=== PATIENT | male | born 1990 | race Caucasian/White ===

== ENCOUNTER 2017-05-27 15:17 | Emergency (ER) | payer SELFPAY ==
[2017-05-27] MEDS ORDERED: NACL 0.9% 1000 ML 1,000 ML IV ONE (15:32)
[2017-05-27] MEDS ORDERED: DILAUDID IV ONE (15:40)
[2017-05-27] MEDS ORDERED: ZOFRAN IV ONE (15:40)
[2017-05-27 16:17] LABS: Basophils % (Auto) 0.3 % (0.0-1.8); Eosinophils % (Auto) 0.5 % (0.0-4.3); Hematocrit 44.6 % (35.5-45.6); Hemoglobin 14.8 gm/dl (11.8-15.2); Mean Corpuscular HGB Conc 33 % (32-34); Mean Corpuscular Hemoglobin 30 pg (28-32); Mean Corpuscular Volume 91 fl (84-94); Platelet Count 234 K/mm3 (140-440); Red Blood Count 4.92 M/mm3 (3.65-5.03); Red Cell Distribution Width 12.6 % (13.2-15.2); White Blood Count 16.6 K/mm3 (4.5-11.0)
[2017-05-27 16:18] LABS: Anion Gap 19 mmol/L; BUN/Creatinine Ratio 15; Blood Urea Nitrogen 19 mg/dL (9-20); Calcium 9.4 mg/dL (8.4-10.2); Carbon Dioxide 28 mmol/L (22-30); Chloride 98.8 mmol/L (98-107); Glucose 93 mg/dL (75-100); Potassium 4.4 mmol/L (3.6-5.0); Sodium 141 mmol/L (137-145)
[2017-05-27 16:20] LABS: Alanine Aminotransferase 25 units/L (7-56); Albumin 4.8 g/dL (3.9-5); Albumin/Globulin Ratio 1.8 %; Alkaline Phosphatase 76 units/L (35-129); Lipase 43 units/L (13-60); Total Protein 7.5 g/dL (6.3-8.2)
[2017-05-27 16:23] LABS: Bilirubin,Direct < 0.2 mg/dL (0-0.2); Bilirubin,Indirect 0.1 mg/dL
[2017-05-27 16:28] LABS: INR 0.92 (0.87-1.13)
[2017-05-27 16:29] LABS: Partial Thromboplastin Time 24.8 Sec. (24.2-36.6)
--- NOTE | 2017-05-27 16:47 | XRay Report ---
AP CHEST: Trauma with chest and shoulder pain. AP view of the chest demonstrates a normal mediastinal and cardiac contour with clear lungs and normal bony and soft tissue structures. IMPRESSION: Normal AP chest.
--- NOTE | 2017-05-27 16:48 | XRay Report ---
AP PELVIS: Trauma, pelvic pain. AP view of the pelvis shows normal pelvic contour and soft tissues. The hips are symmetric and within normal limits as are the sacroiliac joints. IMPRESSION: Normal pelvis.
[2017-05-27 17:58] LABS: Urine Drugs of Abuse Note Disclamer
[2017-05-27 18:19] LABS: Bilirubin,Urine NEG (Negative); Blood,Urine MOD (Negative); Ketones,Urine NEG (Negative); Leukocyte Esterase,Urine NEG (Negative); Mucus,Urine FEW /HPF; Nitrite,Urine NEG (Negative); Urobilinogen,Urine < 2.0 mg/dL (<2.0)
[2017-05-27] MEDS ORDERED: BOOSTRIX IM ONE (18:26)
--- NOTE | 2017-05-27 18:55 | Emergency Department Report ---
ED General Adult HPI - General Chief complaint: Multiple Trauma Stated complaint: TREE FALL ON PT , LEFT SIDE PAIN Time Seen by Provider: 05/27/17 15:31 Source: patient Mode of arrival: Ambulatory Limitations: No Limitations - History of Present Illness Initial comments: The patient is employed by a [employer]. He states that he was injured when a branch fell from a height hitting his left posterior thorax region. He subsequently fell onto his right costal region. He complains of pain in both those locations. He is not complaining of pain in his abdominal region. He did not strike his head. He does not complain of any midline spine pain at any juncture. He denies neck pain mid back and lower back pain. He denies any extremity injury. He is not short of breath. Patient denies any previous medical problems or surgery. Doesn't speak Hungarian. The history was obtained in Nepali. -: Sudden Location: chest Radiation: non-radiation Severity scale (0 -10): 7 Quality: aching Consistency: intermittent Improves with: none Worsens with: movement Associated Symptoms: denies other symptoms Treatments Prior to Arrival: none - Related Data Previous Rx's Medication Instructions Recorded Last Taken Type HYDROcodone/APAP 5-325 [[place] 1 each PO Q6HR PRN #10 tablet 05/27/17 Unknown Rx 5/325] Allergies Allergy/AdvReac Type Severity Reaction Status Date / Time No Known Allergies Allergy Unverified 05/27/17 15:27 ED Review of Systems ROS: Stated complaint: TREE FALL ON PT , LEFT SIDE PAIN Other details as noted in HPI Constitutional: denies: chills, fever Eyes: denies: eye pain, eye discharge, vision change ENT: denies: ear pain, throat pain Respiratory: denies: cough, shortness of breath, wheezing Cardiovascular: chest pain. denies: palpitations Endocrine: no symptoms reported Gastrointestinal: denies: abdominal pain, nausea, diarrhea Genitourinary: denies: urgency, dysuria Musculoskeletal: denies: back pain, joint swelling, arthralgia Skin: denies: rash, lesions Neurological: denies: headache, weakness, paresthesias Psychiatric: denies: anxiety, depression Hematological/Lymphatic: denies: easy bleeding, easy bruising ED Past Medical Hx - Past Medical History Previous Medical History?: No - Surgical History Past Surgical History?: No - Social History Smoking Status: Current Every Day Smoker Substance Use Type: None - Medications Home Medications: Home Medications Medication Instructions Recorded Confirmed Last Taken Type HYDROcodone/APAP 5-325 [[place] 1 each PO Q6HR PRN #10 tablet 05/27/17 Unknown Rx 5/325] ED Physical Exam - General Limitations: No Limitations General appearance: alert, in no apparent distress - Head Head exam: Present: atraumatic, normocephalic - Eye Eye exam: Present: normal appearance. Absent: scleral icterus - ENT ENT exam: Present: mucous membranes moist - Neck Neck exam: Present: normal inspection - Respiratory Respiratory exam: Present: normal lung sounds bilaterally, chest wall tenderness. Absent: respiratory distress - Cardiovascular Cardiovascular Exam: Present: regular rate, normal rhythm. Absent: systolic murmur, diastolic murmur, rubs, gallop - GI/Abdominal GI/Abdominal exam: Present: soft, normal bowel sounds. Absent: distended, tenderness, guarding, rebound, rigid - Rectal Rectal exam: Present: deferred - Extremities Exam Extremities exam: Present: normal inspection - Back Exam Back exam: Present: normal inspection. Absent: CVA tenderness (R), CVA tenderness (L), muscle spasm, paraspinal tenderness, vertebral tenderness - Neurological Exam Neurological exam: Present: alert, oriented X3, CN II-XII intact. Absent: motor sensory deficit - Psychiatric Psychiatric exam: Present: normal affect, normal mood - Skin Skin exam: Present: warm, dry, abrasion (left posterior and right anterior costal region), ecchymosis. Absent: rash ED Course Vital Signs 05/27/17 05/27/17 05/27/17 15:24 18:27 19:04 Temperature 98.4 F 99.3 F Pulse Rate 105 H 89 Respiratory 18 18 15 Rate Blood Pressure 121/60 Blood Pressure 123/64 [Right] O2 Sat by Pulse 98 98 Oximetry 05/27/17 22:24 Temperature 98.8 F Pulse Rate 73 Respiratory 18 Rate Blood Pressure Blood Pressure 126/84 [Right] O2 Sat by Pulse 100 Oximetry - Reevaluation(s) Reevaluation #1: Patient was given IV fluids and analgesia. His plain x-rays were negative. I am awaiting his CT reports. He remains hemodynamically stable. 05/27/17 18:54 Reevaluation #2: On reexamination patient is resting comfortably. There is no signs of any respiratory problem or submental complaint. His pain is well controlled. 05/27/17 19:53 ED Medical Decision Making - Lab Data Result diagrams: 05/27/17 15:41 05/27/17 15:41 Laboratory Results - last 24 hr 05/27/17 05/27/17 05/27/17 15:41 15:41 15:41 WBC 16.6 H RBC 4.92 Hgb 14.8 Hct 44.6 MCV 91 MCH 30 MCHC 33 RDW 12.6 L Plt Count 234 Lymph % (Auto) 8.4 L Bledsoe % (Auto) 8.5 H Eos % (Auto) 0.5 Baso % (Auto) 0.3 Lymph # 1.4 Bledsoe # 1.4 H Eos # 0.1 Baso # 0.0 Seg Neutrophils % 82.3 H Seg Neutrophils # 13.7 H PT 12.8 INR 0.92 APTT 24.8 Sodium 141 Potassium 4.4 Chloride 98.8 Carbon Dioxide 28 Anion Gap 19 BUN 19 Creatinine 1.3 Estimated GFR > 60 BUN/Creatinine Ratio 15 Glucose 93 Calcium 9.4 Magnesium Total Bilirubin Direct Bilirubin Indirect Bilirubin AST ALT Alkaline Phosphatase Total Protein Albumin Albumin/Globulin Ratio Lipase Urine Color Urine Turbidity Urine pH Ur Specific Pace Urine Protein Urine Glucose (UA) Urine Ketones Urine Blood Urine Nitrite Urine Bilirubin Urine Urobilinogen Ur Leukocyte Esterase Urine WBC (Auto) Urine RBC (Auto) U Epithel Cells (Auto) Urine Mucus Urine Opiates Screen Urine Methadone Screen Ur Barbiturates Screen Ur Phencyclidine Scrn Ur Amphetamines Screen U Benzodiazepines Scrn Urine Cocaine Screen U Marijuana (THC) Screen Drugs of Abuse Note Plasma/Serum Alcohol Blood Type Antibody Screen 05/27/17 05/27/17 05/27/17 15:41 15:41 15:41 WBC RBC Hgb Hct MCV MCH MCHC RDW Plt Count Lymph % (Auto) Bledsoe % (Auto) Eos % (Auto) Baso % (Auto) Lymph # Bledsoe # Eos # Baso # Seg Neutrophils % Seg Neutrophils # PT INR APTT Sodium Potassium Chloride Carbon Dioxide Anion Gap BUN Creatinine Estimated GFR BUN/Creatinine Ratio Glucose Calcium Magnesium 1.90 Total Bilirubin 0.30 Direct Bilirubin < 0.2 Indirect Bilirubin 0.1 AST 30 ALT 25 Alkaline Phosphatase 76 Total Protein 7.5 Albumin 4.8 Albumin/Globulin Ratio 1.8 Lipase 43 Urine Color Urine Turbidity Urine pH Ur Specific Pace Urine Protein Urine Glucose (UA) Urine Ketones Urine Blood Urine Nitrite Urine Bilirubin Urine Urobilinogen Ur Leukocyte Esterase Urine WBC (Auto) Urine RBC (Auto) U Epithel Cells (Auto) Urine Mucus Urine Opiates Screen Urine Methadone Screen Ur Barbiturates Screen Ur Phencyclidine Scrn Ur Amphetamines Screen U Benzodiazepines Scrn Urine Cocaine Screen U Marijuana (THC) Screen Drugs of Abuse Note Plasma/Serum Alcohol < 0.01 Blood Type A POSITIVE Antibody Screen Negative 05/27/17 05/27/17 Unknown Unknown WBC RBC Hgb Hct MCV MCH MCHC RDW Plt Count Lymph % (Auto) Bledsoe % (Auto) Eos % (Auto) Baso % (Auto) Lymph # Bledsoe # Eos # Baso # Seg Neutrophils % Seg Neutrophils # PT INR APTT Sodium Potassium Chloride Carbon Dioxide Anion Gap BUN Creatinine Estimated GFR BUN/Creatinine Ratio Glucose Calcium Magnesium Total Bilirubin Direct Bilirubin Indirect Bilirubin AST ALT Alkaline Phosphatase Total Protein Albumin Albumin/Globulin Ratio Lipase Urine Color Yellow Urine Turbidity Clear Urine pH 5.0 Ur Specific Pace 1.043 H Urine Protein 30 mg/dl Urine Glucose (UA) Neg Urine Ketones Neg Urine Blood Mod Urine Nitrite Neg Urine Bilirubin Neg Urine Urobilinogen < 2.0 Ur Leukocyte Esterase Neg Urine WBC (Auto) 2.0 Urine RBC (Auto) 7.0 U Epithel Cells (Auto) < 1.0 Urine Mucus Few Urine Opiates Screen Presumptive negative Urine Methadone Screen Presumptive negative Ur Barbiturates Screen Presumptive negative Ur Phencyclidine Scrn Presumptive negative Ur Amphetamines Screen Presumptive negative U Benzodiazepines Scrn Presumptive negative Urine Cocaine Screen Presumptive negative U Marijuana (THC) Screen Presumptive negative Drugs of Abuse Note Disclamer Plasma/Serum Alcohol Blood Type Antibody Screen - Radiology Data interpreted by me: I do not see anything abnormal on the plain films. Awaiting radiologist's report of the CT examinations... CT examination was reviewed today. The patient was transferred to the [facility] per Dr. Escalante after my departure. Critical care attestation.: If time is entered above; I have spent that time in minutes in the direct care of this critically ill patient, excluding procedure time. ED Disposition Clinical Impression: Rib fractures Chest wall contusion Qualifiers: Encounter type: initial encounter Laterality: unspecified laterality Qualified Code(s): S20.219A - Contusion of unspecified front wall of thorax, initial encounter Pulmonary contusion Qualifiers: Encounter type: initial encounter Laterality: unspecified laterality Qualified Code(s): S27.329A - Contusion of lung, unspecified, initial encounter Lumbar transverse process fracture Qualifiers: Encounter type: initial encounter Fracture type: closed Qualified Code(s): S32.009A - Unspecified fracture of unspecified lumbar vertebra, initial encounter for closed fracture Disposition: DC/TX-70 ANOTHER TYPE HLTHCARE Is pt being admited?: No Does the pt Need Aspirin: No Condition: Stable Instructions: Contusion in Adults (ED) Additional Instructions: Return a difficulty in breathing increased pain or acute change. Prescriptions: HYDROcodone/APAP 5-325 [[place] 5/325] 1 each PO Q6HR PRN #10 tablet PRN Reason: Pain Referrals: PRIMARY CARE, [Primary Care Provider] - 3-5 Days [facility] [Provider Group] - 3-5 Days Time of Disposition: 19:58
--- NOTE | 2017-05-27 20:39 | Cat Scan Report ---
FINAL REPORT PROCEDURE: CT CHEST ABDOMEN PELVIS W CON TECHNIQUE: Computerized axial tomography of the abdomen and pelvis was performed after the IV injection of iodinated nonionic contrast. HISTORY: trauma COMPARISON: No prior studies are available for comparison. FINDINGS: Accession No. : [id number] Patient Name / ID : AJ LAZO / [id number] Exam Date : 05/27/2017 16:47:14 ( Final ) Study Comment : Sex / Age : M / 26Y Creator : ROBERT SAMANIEGO M.D. Dictator : ROBERT SAMANIEGO M.D. Professional Housing Consultant : Corn Detasseler Machine Operator : ROBERT SAMANIEGO M.D. Approver2 : Report Date : 05/27/2017 20:37:14 My Comment : PROCEDURE: CT CHEST, ABD AND PELVIS W CONTRAST TECHNIQUE: Computerized axial tomography of the chest, abdomen, and pelvis after the IV injection of iodinated nonionic contrast was performed. HISTORY: trauma COMPARISON: No prior studies are available for comparison. FINDINGS: Chest: Heart and pericardium: Normal. Thoracic aorta: Normal. Pulmonary vasculature: Normal. Mediastinum: No enlarged thoracic lymph nodes. Lungs: Slight mixed haziness in the left infrahilar lung zone posteriorly may reflect atelectasis or slight contusion. No pneumothorax is seen. Pleural space: No effusion, thickening, or pneumothorax. Bony thorax: Displaced rib fracture involving the left lateral 10th rib Abdomen pelvis: Liver: Normal size and attenuation. Spleen: Normal size and attenuation. Gallbladder and biliary system: Normal. Pancreas: Normal. Adrenals: Normal. Kidneys: Normal. GI tract: Normal. Lymph nodes and mesentery: Normal. Vasculature: Normal. Bladder: Normal. Reproductive organs: Normal. Peritoneum: No free fluid Musculoskeletal structures: Fracture of the transverse process on the left at L2 and L3 Other: None. IMPRESSION: IMPRESSION: Acute fractures involving the left lateral 10th rib and left transverse process of the left L2 and L3 levels Minor lung contusion left lower lung zone with slight atelectasis
--- NOTE | 2017-05-27 21:11 | Emergency Department Report ---
Blank Doc - Documentation Documentation: I was asked by my colleague, Dr. Scott, to follow up on this patient's CT scan of the chest and the abdomen/pelvis. CT scan came back showing a fracture of the left lateral rib 10, transverse process fractures of L2 and L3 and a left lung contusion. With this polytrauma, the patient will be transferred to [facility] for further evaluation from their trauma team and has been accepted for transfer by Dr. ang.
--- NOTE | 2017-05-27 21:24 | Cat Scan Report ---
FINAL REPORT PROCEDURE: CT CHEST W CON TECHNIQUE: Computerized axial tomography of the chest was performed during the IV injection of iodinated nonionic contrast. HISTORY: trauma COMPARISON: No prior studies are available for comparison. TECHNICAL QUALITY: Satisfactory. FINDINGS: Accession No. : [id number] Patient Name / ID : AJ LAZO / [id number] Exam Date : 05/27/2017 16:47:14 ( Final ) Study Comment : Sex / Age : M / 26Y Creator : ROBERT SAMANIEGO M.D. Dictator : ROBERT SAMANIEGO M.D. Track Liner Operator : Homeworker : ROBERT SAMANIEGO M.D. Approver2 : Report Date : 05/27/2017 20:44:37 My Comment : PROCEDURE: CT CHEST ABDOMEN PELVIS W CON TECHNIQUE: Computerized axial tomography of the abdomen and pelvis was performed after the IV injection of iodinated nonionic contrast. HISTORY: trauma COMPARISON: No prior studies are available for comparison. FINDINGS: Accession No. : [id number] Patient Name / ID : AJ LAZO / [id number] Exam Date : 05/27/2017 16:47:14 ( Final ) Study Comment : Sex / Age : M / 26Y Creator : ROBERT SAMANIEGO M.D. Dictator : ROBERT SAMANIEGO M.D. Track Liner Operator : Homeworker : ROBERT SAMANIEGO M.D. Approver2 : Report Date : 05/27/2017 20:37:14 My Comment : PROCEDURE: CT CHEST, ABD AND PELVIS W CONTRAST TECHNIQUE: Computerized axial tomography of the chest, abdomen, and pelvis after the IV injection of iodinated nonionic contrast was performed. HISTORY: trauma COMPARISON: No prior studies are available for comparison. FINDINGS: Chest: Heart and pericardium: Normal. Thoracic aorta: Normal. Pulmonary vasculature: Normal. Mediastinum: No enlarged thoracic lymph nodes. Lungs: Slight mixed haziness in the left infrahilar lung zone posteriorly may reflect atelectasis or slight contusion. No pneumothorax is seen. Tiny 3 mm nodule LLL. Pleural space: No effusion, thickening, or pneumothorax. Bony thorax: Displaced rib fracture involving the left lateral 10th rib Abdomen pelvis: Liver: Normal size and attenuation. Spleen: Normal size and attenuation. Gallbladder and biliary system: Normal. Pancreas: Normal. Adrenals: Normal. Kidneys: Normal. GI tract: Normal. Lymph nodes and mesentery: Normal. Vasculature: Normal. Bladder: Normal. Reproductive organs: Normal. Peritoneum: No free fluid Musculoskeletal structures: Fracture of the transverse process on the left at L2 and L3 Other: None. IMPRESSION: IMPRESSION: IMPRESSION: Acute fractures involving the left lateral 10th rib and left transverse process of the left L2 and L3 levels Minor lung contusion left lower lung zone with slight atelectasis
[2017-05-27 22:26] VITALS: BP 126/84
== END 2017-05-27 23:20 | disposition other institution (70) ==
LOC: ED 15:17
DX: S32.009A Unspecified fracture of unspecified lumbar vertebra, initial encounter for closed fracture (principal); S22.32XA Fracture of one rib, left side, initial encounter for closed fracture; F17.210 Nicotine dependence, cigarettes, uncomplicated; W20.8XXA Other cause of strike by thrown, projected or falling object, initial encounter; Y93.89 Activity, other specified; Y92.89 Other specified places as the place of occurrence of the external cause; Y99.8 Other external cause status
CPT/HCPCS: 36415; 71010; 71260; 72170; 74177; 80048; 80074; 80307; 81001; 83690; 83735; 85025; 85610; 85730; 86850; 86900; 86901; 90471; 90715; 93005; 93010; 96361; 96374; 96375; 99285; G0480; J1170; J2405; J7030; Q9967; 80320